=== PATIENT | male | born 1960 | race American Indian/Alaskan Native ===

== ENCOUNTER 2019-05-29 19:40 | Emergency (ER) | payer SELFPAY ==
[2019-05-29 20:01] VITALS: BP 114/72
--- NOTE | 2019-05-29 20:04 | Event Note ---
ED Screening Note ED Screening Note: chills/hot cough never smoker no lung disease new to area This initial assessment/diagnostic orders/clinical plan/treatment(s) is/are subject to change based on patients health status, clinical progression and re- assessment by fellow clinical providers in the ED. Further treatment and workup at subsequent clinical providers discretion. Patient/guardian urged not to elope from the ED as their condition may be serious if not clinically assessed and managed. Initial orders include: xray
--- NOTE | 2019-05-29 21:18 | XRay Report ---
CHEST PA AND LATERAL VIEWS INDICATION: cough and congestion. COMPARISON: None. FINDINGS: Support devices: None. Heart: Within normal limits. Lungs/Pleura: No acute pulmonary or pleural findings. IMPRESSION: 1. No significant abnormality. Signer Name: João Jesus MD Signed: 05/29/2019 9:13 PM Workstation Name: [id number]
--- NOTE | 2019-05-29 22:37 | Emergency Department Report ---
- General Chief Complaint: Upper Respiratory Infection Stated Complaint: CHEST CONGESTION Time Seen by Provider: 05/29/19 20:02 Source: patient Mode of arrival: Ambulatory Limitations: No Limitations - History of Present Illness Initial Comments: Patient is a 58-year-old -Burkin[place] male who presents for cough wheezing nocturnal fever history of bronchitis states my bronchitis is acting up patient states out of albuterol inhaler there is no chest pain no nausea vomiting no dizziness no lightheadedness symptoms are exacerbated by environmental exposure symptoms are relieved by rest MD Complaint: cough, rhinorrhea, nasal congestion, sinus pain Onset/Timin -: days(s) Severity: moderate Severity scale (0 -10): 5 Consistency: constant Improves With: nothing Worsens With: other (environmental exposure ) Context: sick contacts Associated Symptoms: fever, rhinorrhea, nasal congestion, cough - Related Data Previous Rx's Medication Instructions Recorded Last Taken Type ALBUTEROL Inhaler (OR & NICU) 2 puff IH QID PRN #1 inhalation 05/29/19 Unknown Rx [ProAir HFA Inhaler] Benzonatate [Tessalon Perles] 100 mg PO Q8HR PRN #30 capsule 05/29/19 Unknown Rx Clindamycin [Clindamycin CAP] 300 mg PO Q8H 10 Days #30 cap 05/29/19 Unknown Rx Ibuprofen [Motrin 800 MG tab] 800 mg PO Q8HR PRN #30 tablet 05/29/19 Unknown Rx predniSONE [Deltasone] 40 mg PO QDAY 5 Days #10 tab 05/29/19 Unknown Rx Allergies Allergy/AdvReac Type Severity Reaction Status Date / Time erythromycin base Allergy Unknown Verified 05/29/19 20:04 Sulfa (Sulfonamide Allergy Unknown Verified 05/29/19 20:05 Antibiotics) Tetracyclines AdvReac Swelling Verified 05/29/19 20:04 ED Review of Systems ROS: Stated complaint: CHEST CONGESTION Other details as noted in HPI Constitutional: denies: chills, fever Eyes: denies: eye pain, eye discharge, vision change ENT: congestion. denies: ear pain, throat pain Respiratory: cough. denies: shortness of breath, wheezing Cardiovascular: denies: chest pain, palpitations Endocrine: no symptoms reported Gastrointestinal: denies: abdominal pain, nausea, diarrhea Genitourinary: denies: urgency, dysuria Musculoskeletal: denies: back pain, joint swelling, arthralgia Skin: denies: rash, lesions Neurological: denies: headache, weakness, paresthesias Psychiatric: denies: anxiety, depression Hematological/Lymphatic: denies: easy bleeding, easy bruising ED Past Medical Hx - Past Medical History Previous Medical History?: Yes Hx Hypertension: Yes Hx Renal Disease: Yes (stage I) Additional medical history: HERNIA, PRE-DIABETES, HYPERLIPIDEMIA - Surgical History Past Surgical History?: Yes Additional Surgical History: R ARM SURGERY - Social History Smoking Status: Never Smoker Substance Use Type: None - Medications Home Medications: Home Medications Medication Instructions Recorded Confirmed Last Taken Type ALBUTEROL Inhaler (OR & NICU) 2 puff IH QID PRN #1 inhalation 05/29/19 Unknown Rx [ProAir HFA Inhaler] Benzonatate [Tessalon Perles] 100 mg PO Q8HR PRN #30 capsule 05/29/19 Unknown Rx Clindamycin [Clindamycin CAP] 300 mg PO Q8H 10 Days #30 cap 05/29/19 Unknown Rx Ibuprofen [Motrin 800 MG tab] 800 mg PO Q8HR PRN #30 tablet 05/29/19 Unknown Rx predniSONE [Deltasone] 40 mg PO QDAY 5 Days #10 tab 05/29/19 Unknown Rx ED Physical Exam - General Limitations: No Limitations General appearance: alert, in no apparent distress - Head Head exam: Present: atraumatic, normocephalic - Eye Eye exam: Present: normal appearance, PERRL, EOMI Pupils: Present: normal accommodation - ENT ENT exam: Present: mucous membranes moist, TM's normal bilaterally, normal external ear exam - Expanded ENT Exam Expanded Ear exam: Present: normal external inspection Throat exam: Positive: tonsillar erythema, tonsillomegaly, tonsillar exudate, R peritonsillar mass, L peritonsillar mass - Neck Neck exam: Present: normal inspection, full ROM. Absent: tenderness, lymphadenopathy, thyromegaly - Respiratory Respiratory exam: Present: normal lung sounds bilaterally. Absent: respiratory distress, wheezes, stridor, chest wall tenderness - Cardiovascular Cardiovascular Exam: Present: regular rate, normal rhythm, normal heart sounds. Absent: systolic murmur, diastolic murmur, rubs, gallop - GI/Abdominal GI/Abdominal exam: Present: soft, normal bowel sounds. Absent: distended, tenderness, guarding, rebound, rigid, bruit, hernia - Rectal Rectal exam: Present: deferred - Extremities Exam Extremities exam: Present: normal inspection, full ROM, normal capillary refill. Absent: tenderness - Back Exam Back exam: Present: normal inspection, full ROM, vertebral tenderness. Absent: tenderness, CVA tenderness (R), CVA tenderness (L), muscle spasm, rash noted - Neurological Exam Neurological exam: Present: alert, oriented X3, CN II-XII intact, normal gait, reflexes normal - Psychiatric Psychiatric exam: Present: normal affect, normal mood - Skin Skin exam: Present: warm, dry, intact, normal color. Absent: rash ED Course Vital Signs 05/29/19 20:00 Temperature 99.3 F Pulse Rate 85 Respiratory 18 Rate Blood Pressure 114/72 O2 Sat by Pulse 99 Oximetry ED Medical Decision Making - Radiology Data Radiology results: report reviewed, image reviewed Ordering Physician: SOPHY OBRIEN Date of Service: 05/29/19 Procedure(s): XR chest routine 2V Accession Number(s): [id number] cc: SOPHY OBRIEN Fluoro Time In Minutes: CHEST PA AND LATERAL VIEWS INDICATION: cough and congestion. COMPARISON: None. FINDINGS: Support devices: None. Heart: Within normal limits. Lungs/Pleura: No acute pulmonary or pleural findings. IMPRESSION: 1. No significant abnormality. Signer Name: João Jesus MD Signed: 05/29/2019 9:13 PM Workstation Name: [id number] Transcribed By: Dictated By: João Jesus MD Electronically Authenticated By: João Jesus MD Signed Date/Time: 05/29/192112 - Medical Decision Making cxr no infiltrates no opacities, plan tx for bronchitis, albuterol, prednisone, azithromycin, ibuprofen tessalon pearls, follow up with pcp in 2-3 days return to emergency if symptoms worsen. Critical care attestation.: If time is entered above; I have spent that time in minutes in the direct care of this critically ill patient, excluding procedure time. ED Disposition Clinical Impression: Bronchitis Disposition: DC-01 TO HOME OR SELFCARE Is pt being admited?: No Does the pt Need Aspirin: No Condition: Stable Instructions: Chronic Bronchitis (ED) Prescriptions: Clindamycin [Clindamycin CAP] 300 mg PO Q8H 10 Days #30 cap predniSONE [Deltasone] 40 mg PO QDAY 5 Days #10 tab Ibuprofen [Motrin 800 MG tab] 800 mg PO Q8HR PRN #30 tablet PRN Reason: Pain , Severe (7-10) ALBUTEROL Inhaler (OR & NICU) [ProAir HFA Inhaler] 2 puff IH QID PRN #1 inhalation PRN Reason: Shortness Of Breath Benzonatate [Tessalon Perles] 100 mg PO Q8HR PRN #30 capsule PRN Reason: cough [facility] - [facility]-5 Days Forms: Work/School Release Form(ED) Time of Disposition: 22:47
== END 2019-05-29 23:00 | disposition home or self-care (01) ==
LOC: ED 19:40
DX: J40 Bronchitis, not specified as acute or chronic (principal); I10 Essential (primary) hypertension; E78.5 Hyperlipidemia, unspecified; Z91.041 Radiographic dye allergy status; Z88.2 Allergy status to sulfonamides; Z88.8 Allergy status to other drugs, medicaments and biological substances; Z98.890 Other specified postprocedural states
CPT/HCPCS: 71046

== ENCOUNTER 2019-06-23 14:08 | Emergency (ER) | payer MEDICAID ==
--- NOTE | 2019-06-23 14:13 | Event Note ---
ED Screening Note Date of service: 06/23/19 Time: 14:12 ED Screening Note: This is a 58 y.o. M. that presents to the ER with headache, sore throat, and congestion for 3 weeks. This initial assessment/diagnostic orders/clinical plan/treatment(s) is/are subject to change based on patients health status, clinical progression and re- assessment by fellow clinical providers in the ED. Further treatment and workup at subsequent clinical providers discretion. Patient/guardian urged not to elope from the ED as their condition may be serious if not clinically assessed and managed. Initial orders include: ACC for further evaluation.
[2019-06-23 14:14] VITALS: BP 132/79
[2019-06-23] MEDS ORDERED: TYLENOL/CODEINE PO ONE (15:08)
[2019-06-23] MEDS ORDERED: TRIMOX PO ONE (15:08)
--- NOTE | 2019-06-23 15:09 | Emergency Department Report ---
Minor Respiratory - HPI Chief Complaint: Upper Respiratory Infection Stated Complaint: SORE THROAT/PINK EYE Time Seen by Provider: 06/23/19 14:12 Pain Location: Facial, Throat, Nose Severity: moderate Minor Respiratory: Yes Sore Throat, Yes Able to Tolerate Fluids, Yes Cough, No Rhinorrhea, No Ear Pain, No Sick Contacts, No Hemoptysis, No Chest Pain, No Shortness of Breath, No Fever Other History: 58-year-old male presents with sore throat I drainage and nasal congestion stating that he is a family history for about a week now. Patient states that he is some eyedrops with no relief. He denies fever assess chill/nausea vomiting ED Review of Systems ROS: Stated complaint: SORE THROAT/PINK EYE Other details as noted in HPI Comment: All other systems reviewed and negative ED Past Medical Hx - Past Medical History Previous Medical History?: Yes Hx Hypertension: Yes Hx Renal Disease: Yes (stage I) Additional medical history: HERNIA, PRE-DIABETES, HYPERLIPIDEMIA. A FIB - Surgical History Additional Surgical History: R ARM SURGERY - Social History Smoking Status: Never Smoker Substance Use Type: None - Medications Home Medications: Home Medications Medication Instructions Recorded Confirmed Last Taken Type ALBUTEROL Inhaler (OR & NICU) 2 puff IH QID PRN #1 inhalation 05/29/19 Unknown Rx [ProAir HFA Inhaler] Clindamycin [Clindamycin CAP] 300 mg PO Q8H 10 Days #30 cap 05/29/19 Unknown Rx levoFLOXacin [Levaquin TAB] 500 mg PO QDAY 3 Days #3 tablet 05/29/19 Unknown Rx predniSONE [Deltasone] 40 mg PO QDAY 5 Days #10 tab 05/29/19 Unknown Rx Amoxicillin/Potassium Clav 1 each PO BID #20 tablet 06/23/19 Unknown Rx [Augmentin 875-125 Tablet] Benzonatate [Tessalon Perles] 100 mg PO Q8HR PRN #30 capsule 06/23/19 Unknown Rx Ibuprofen [Motrin 800 MG tab] 800 mg PO Q8HR PRN #30 tablet 06/23/19 Unknown Rx Minor Respiratory Exam - Exam General: Vital signs noted. No distress. Alert and acting appropriately. HEENT: Yes Moist Mucous Membranes, Yes Maxillary Tenderness, No Pharyngeal Erythema, No Pharyngeal Exudates, No Rhinorrhea, No Conjuctival Injection, No Frontal Tenderness Ear: Neither TM Bulge, Neither TM Erythema, Neither EAC Pain, Neither EAC Discharge Neck: Yes Supple (no tonsillar erythema, no tonsillar swelling, no exudate), No Adenopathy Lungs: Yes Good Air Exchange, No Wheezes, No Ronchi, No Stridor, No Cough, No Labored Respirations, No Retractions, No Use of Accessory Muscles, No Other Abnormal Lung Sounds Heart: Yes Regular, No Murmur Abdomen: Yes Normal Bowel Sounds, No Tenderness, No Peritoneal Signs Skin: No Rash, No Edema Neurologic: Alert and oriented, no deficits. Musculoskeletal: Unremarkable. ED Course Vital Signs 06/23/19 14:12 Temperature 98.6 F Pulse Rate 77 Respiratory 16 Rate Blood Pressure 132/79 O2 Sat by Pulse 99 Oximetry ED Medical Decision Making - Medical Decision Making 58-year-old male presents with acute sinusitis with mild conjunctivitis. Discussed with patient that he will be given some oral antibiotics. Assessment the patient to follow up with primary care physician in 3-5 days. I discussed with the patient the patient to continue using his eyedrops as prescribed. Patient is in no acute distress. Vital signs are normal he is in no respiratory distress. Discussed follow-up necessary. Mariella given Critical care attestation.: If time is entered above; I have spent that time in minutes in the direct care of this critically ill patient, excluding procedure time. ED Disposition Clinical Impression: Sinusitis Disposition: - TO HOME OR SELFCARE Is pt being admited?: No Does the pt Need Aspirin: No Condition: Stable Instructions: Upper Respiratory Infection (ED), Sinusitis (ED) Additional Instructions: Make sure to follow up with the primary care physician as discussed. Take all your medications as you've been prescribed. If you have any worsening symptoms or develop new symptoms please return to ED immediately. Prescriptions: Amoxicillin/Potassium Clav [Augmentin 875-125 Tablet] 1 each PO BID #20 tablet Ibuprofen [Motrin 800 MG tab] 800 mg PO Q8HR PRN #30 tablet PRN Reason: Pain , Severe (7-10) Benzonatate [Tessalon Perles] 100 mg PO Q8HR PRN #30 capsule PRN Reason: cough Referrals: [facility] [Outside] - 3-5 Days [facility] [Outside] - 3-5 Days Forms: Accompanied Note, Work/School Release Form(ED) Time of Disposition: 16:22
== END 2019-06-23 16:42 | disposition home or self-care (01) ==
LOC: ED 14:08
DX: J32.9 Chronic sinusitis, unspecified (principal); I10 Essential (primary) hypertension; E78.5 Hyperlipidemia, unspecified; Z98.890 Other specified postprocedural states; N28.9 Disorder of kidney and ureter, unspecified; Z79.899 Other long term (current) drug therapy; Z91.041 Radiographic dye allergy status; Z88.2 Allergy status to sulfonamides; Z88.1 Allergy status to other antibiotic agents

== ENCOUNTER 2019-08-19 23:29 | Emergency (ER) | payer SELFPAY ==
[2019-08-20 00:30] LABS: Basophils % (Auto) 0.7 % (0.0-1.8); Eosinophils # (Auto) 0.1 K/mm3 (0.0-0.4); Hematocrit 40.1 % (35.5-45.6); Hemoglobin 13.7 gm/dl (11.8-15.2); Lymphocytes # (Auto) 2.1 K/mm3 (1.2-5.4); Mean Corpuscular HGB Conc 34 % (32-34); Mean Corpuscular Volume 83 fl (84-94); Monocytes # (Auto) 0.4 K/mm3 (0.0-0.8); Monocytes % (Auto) 7.2 % (0.0-7.3); Platelet Count 180 K/mm3 (140-440); Red Blood Count 4.83 M/mm3 (3.65-5.03); Red Cell Distribution Width 15.9 % (13.2-15.2)
[2019-08-20 00:53] LABS: Alanine Aminotransferase 23 units/L (7-56); BUN/Creatinine Ratio 13; Blood Urea Nitrogen 15 mg/dL (9-20); Calcium 9.3 mg/dL (8.4-10.2); Hemolysis Index 15
--- NOTE | 2019-08-20 01:13 | XRay Report ---
CHEST 1 VIEW 08/20/2019 12:21 AM INDICATION / CLINICAL INFORMATION: afib. COMPARISON: 05/29/19 FINDINGS: SUPPORT DEVICES: None. HEART / MEDIASTINUM: No significant abnormality. LUNGS / PLEURA: No significant pulmonary or pleural abnormality. No pneumothorax. ADDITIONAL FINDINGS: No significant additional findings. IMPRESSION: 1. No acute findings. No change. Signer Name: Vanesa Fitzgerald MD Signed: 08/20/2019 1:08 AM Workstation Name: [id number]
--- NOTE | 2019-08-20 01:57 | Emergency Department Report ---
ED Shortness of Breath HPI - General Chief Complaint: Arrhythmia/Palpitations Stated Complaint: EVELYN Time Seen by Provider: 08/20/19 00:35 Source: EMS Mode of arrival: Ambulatory Limitations: No Limitations - History of Present Illness Initial Comments: Patient is a 58-year-old -[place] male with a past medical history of atrial fibrillation and prediabetes who is presenting with episode of shortness of breath. Patient states he just moved to [place] and they just finished moving of the things into [facility]. Patient was leaning down to lie on the floor and started having some shortness of breath persisted for approximately 30 minutes to an hour. At this time the patient is asymptomatic. Patient want to come into the hospital to see if he was back into atrial fibrillation. Patient denies chest pain fevers chills cough cold congestion nausea vomiting at this time. - Related Data Previous Rx's Medication Instructions Recorded Last Taken Type ALBUTEROL Inhaler (OR & NICU) 2 puff IH QID PRN #1 inhalation 05/29/19 Unknown Rx [ProAir HFA Inhaler] Clindamycin [Clindamycin CAP] 300 mg PO Q8H 10 Days #30 cap 05/29/19 Unknown Rx levoFLOXacin [Levaquin TAB] 500 mg PO QDAY 3 Days #3 tablet 05/29/19 Unknown Rx predniSONE [Deltasone] 40 mg PO QDAY 5 Days #10 tab 05/29/19 Unknown Rx Amoxicillin/Potassium Clav 1 each PO BID #20 tablet 06/23/19 Unknown Rx [Augmentin 875-125 Tablet] Benzonatate [Tessalon Perles] 100 mg PO Q8HR PRN #30 capsule 06/23/19 Unknown Rx Ibuprofen [Motrin 800 MG tab] 800 mg PO Q8HR PRN #30 tablet 06/23/19 Unknown Rx Allergies Allergy/AdvReac Type Severity Reaction Status Date / Time erythromycin base Allergy Unknown Verified 05/29/19 20:04 Sulfa (Sulfonamide Allergy Unknown Verified 05/29/19 20:05 Antibiotics) Tetracyclines AdvReac Swelling Verified 05/29/19 20:04 ED Review of Systems ROS: Stated complaint: EVELYN Other details as noted in HPI Comment: All other systems reviewed and negative ED Past Medical Hx - Past Medical History Hx Hypertension: Yes Hx Renal Disease: Yes (stage I) Additional medical history: HERNIA, PRE-DIABETES, HYPERLIPIDEMIA. A FIB - Surgical History Additional Surgical History: R ARM SURGERY - Social History Smoking Status: Never Smoker Substance Use Type: None - Medications Home Medications: Home Medications Medication Instructions Recorded Confirmed Last Taken Type ALBUTEROL Inhaler (OR & NICU) 2 puff IH QID PRN #1 inhalation 05/29/19 Unknown Rx [ProAir HFA Inhaler] Clindamycin [Clindamycin CAP] 300 mg PO Q8H 10 Days #30 cap 05/29/19 Unknown Rx levoFLOXacin [Levaquin TAB] 500 mg PO QDAY 3 Days #3 tablet 05/29/19 Unknown Rx predniSONE [Deltasone] 40 mg PO QDAY 5 Days #10 tab 05/29/19 Unknown Rx Amoxicillin/Potassium Clav 1 each PO BID #20 tablet 06/23/19 Unknown Rx [Augmentin 875-125 Tablet] Benzonatate [Tessalon Perles] 100 mg PO Q8HR PRN #30 capsule 06/23/19 Unknown Rx Ibuprofen [Motrin 800 MG tab] 800 mg PO Q8HR PRN #30 tablet 06/23/19 Unknown Rx ED Physical Exam - General Limitations: No Limitations General appearance: alert, in no apparent distress - Head Head exam: Present: atraumatic, normocephalic - Eye Eye exam: Present: normal appearance, PERRL, EOMI - ENT ENT exam: Present: mucous membranes moist - Neck Neck exam: Present: normal inspection - Respiratory Respiratory exam: Present: normal lung sounds bilaterally. Absent: respiratory distress, wheezes, rales, rhonchi - Cardiovascular Cardiovascular Exam: Present: regular rate, normal rhythm. Absent: systolic murmur, diastolic murmur, rubs, gallop - GI/Abdominal GI/Abdominal exam: Present: soft, normal bowel sounds. Absent: distended, tenderness, guarding, rebound - Rectal Rectal exam: Present: deferred - Extremities Exam Extremities exam: Present: normal inspection - Back Exam Back exam: Present: normal inspection - Neurological Exam Neurological exam: Present: alert, oriented X3 - Psychiatric Psychiatric exam: Present: normal affect, normal mood - Skin Skin exam: Present: warm, dry, intact, normal color. Absent: rash ED Course Vital Signs 08/19/19 08/20/19 08/20/19 23:44 00:34 01:00 Temperature 98.9 F 98.7 F Pulse Rate 80 70 70 Respiratory 20 16 14 Rate Blood Pressure 130/80 121/79 Blood Pressure 127/87 [Left] O2 Sat by Pulse 97 98 98 Oximetry ED Medical Decision Making - Lab Data Result diagrams: 08/20/19 00:03 08/20/19 00:03 Lab Results 08/20/19 08/20/19 Range/Units 00:03 00:03 WBC 5.9 (4.5-11.0) K/mm3 RBC 4.83 (3.65-5.03) M/mm3 Hgb 13.7 (11.8-15.2) gm/dl Hct 40.1 (35.5-45.6) % MCV 83 L (84-94) fl MCH 28 (28-32) pg MCHC 34 (32-34) % RDW 15.9 H (13.2-15.2) % Plt Count 180 (140-440) K/mm3 Lymph % (Auto) 35.0 (13.4-35.0) % [place] % (Auto) 7.2 (0.0-7.3) % Eos % (Auto) 2.0 (0.0-4.3) % Baso % (Auto) 0.7 (0.0-1.8) % Lymph # 2.1 (1.2-5.4) K/mm3 [place] # 0.4 (0.0-0.8) K/mm3 Eos # 0.1 (0.0-0.4) K/mm3 Baso # 0.0 (0.0-0.1) K/mm3 Seg Neutrophils % 55.1 (40.0-70.0) % Seg Neutrophils # 3.2 (1.8-7.7) K/mm3 Sodium 140 (137-145) mmol/L Potassium 3.4 L (3.6-5.0) mmol/L Chloride 102.8 (98-107) mmol/L Carbon Dioxide 24 (22-30) mmol/L Anion Gap 17 mmol/L BUN 15 (9-20) mg/dL Creatinine 1.2 (0.8-1.5) mg/dL Estimated GFR > 60 ml/min BUN/Creatinine Ratio 13 % Glucose 148 H (75-100) mg/dL Calcium 9.3 (8.4-10.2) mg/dL Total Bilirubin 0.60 (0.1-1.2) mg/dL AST 19 (5-40) units/L ALT 23 (7-56) units/L Alkaline Phosphatase 104 (35-129) units/L Total Protein 7.3 (6.3-8.2) g/dL Albumin 4.0 (3.9-5) g/dL Albumin/Globulin Ratio 1.2 % - EKG Data -: EKG Interpreted by La - EKG Data 08/20/19 01:54 EKG shows sinus rhythm a rate of 66. The axis is leftward interval show prolonged NC interval but no evidence of atrial fibrillation. Patient has a left anterior fascicular block. There are no ST segment elevations or depressions present. Interpretation at 0016 - Radiology Data COMPARISON: 05/29/19 FINDINGS: SUPPORT DEVICES: None. HEART / MEDIASTINUM: No significant abnormality. LUNGS / PLEURA: No significant pulmonary or pleural abnormality. No pneumothorax. ADDITIONAL FINDINGS: No significant additional findings. IMPRESSION: 1. No acute findings. No change. Signer Name: Vanesa Fitzgerald MD Signed: 08/20/2019 1:08 AM Workstation Name: [id number] Transcribed By: DT Dictated By: Alireza Fitzgerald MD Electronically Authenticated By: Alireza Fitzgerald MD Signed Date/Time: 08/20/19 0108 - Medical Decision Making She was placed on a monitor and showed no evidence of any further atrial fibrillation while he was here in emergency department. Patient will be referred to primary care cardiology here in [place]. Patient's electrolytes within normal limits. Critical care attestation.: If time is entered above; I have spent that time in minutes in the direct care of this critically ill patient, excluding procedure time. ED Disposition Clinical Impression: Paroxysmal A-fib Disposition: DC-01 TO HOME OR SELFCARE Is pt being admited?: No Does the pt Need Aspirin: No Condition: Stable Referrals: CORI BERGMAN MD [Staff Physician] - 3-5 Days JERZY DOLL MD [Staff Physician] - 3-5 Days Time of Disposition: 01:58
[2019-08-20 02:57] VITALS: BP 120/81
== END 2019-08-20 02:15 | disposition home or self-care (01) ==
LOC: ED 23:29
DX: I48.0 Paroxysmal atrial fibrillation (principal); I10 Essential (primary) hypertension; E78.5 Hyperlipidemia, unspecified; Z79.899 Other long term (current) drug therapy; Z91.041 Radiographic dye allergy status; Z88.2 Allergy status to sulfonamides; Z88.1 Allergy status to other antibiotic agents
CPT/HCPCS: 36415; 71045; 80053; 85025; 93005; 93010

== ENCOUNTER 2020-05-17 12:55 | Emergency (ER) | payer OTHER ==
--- NOTE | 2020-05-17 13:41 | XRay Report ---
CHEST 2 VIEWS INDICATION / CLINICAL INFORMATION: cough. COMPARISON: 08/20/2019 FINDINGS: SUPPORT DEVICES: None. HEART / MEDIASTINUM: No significant abnormality. LUNGS / PLEURA: No significant pulmonary or pleural abnormality. No pneumothorax. ADDITIONAL FINDINGS: No significant additional findings. IMPRESSION: 1. No acute findings. Signer Name: João Jesus MD Signed: 05/17/2020 1:36 PM Workstation Name: [id number]
[2020-05-17 13:45] VITALS: BP 130/97
[2020-05-17 14:43] LABS: Basophils % (Auto) 0.9 % (0.0-1.8); Eosinophils % (Auto) 0.7 % (0.0-4.3); Hematocrit 38.7 % (35.5-45.6); Hemoglobin 13.1 gm/dl (11.8-15.2); Lymphocytes % (Auto) 23.6 % (13.4-35.0); Mean Corpuscular HGB Conc 34 % (32-34); Mean Corpuscular Volume 80 fl (84-94); Monocytes # (Auto) 0.2 K/mm3 (0.0-0.8); Monocytes % (Auto) 4.7 % (0.0-7.3); Platelet Count 171 K/mm3 (140-440); Red Blood Count 4.82 M/mm3 (3.65-5.03); Red Cell Distribution Width 15.6 % (13.2-15.2)
[2020-05-17 15:09] LABS: BUN/Creatinine Ratio 10; Blood Urea Nitrogen 11 mg/dL (9-20); Calcium 9.1 mg/dL (8.4-10.2); Hemolysis Index 7
--- NOTE | 2020-05-17 15:37 | Emergency Department Report ---
Minor Respiratory - HPI Chief Complaint: Upper Respiratory Infection Stated Complaint: CP Time Seen by Provider: 05/17/20 13:13 ED Review of Systems ROS: Stated complaint: CP Other details as noted in HPI Comment: All other systems reviewed and negative ED Past Medical Hx - Past Medical History Previous Medical History?: Yes Hx Hypertension: Yes Hx Renal Disease: Yes (stage I) Additional medical history: HERNIA, PRE-DIABETES, HYPERLIPIDEMIA. A FIB - Surgical History Past Surgical History?: Yes Additional Surgical History: R ARM SURGERY - Family History Family history: no significant - Social History Smoking Status: Never Smoker Substance Use Type: None - Medications Home Medications: Home Medications Medication Instructions Recorded Confirmed Last Taken Type Albuterol Mdi (or & Nicu Only) 2 puff IH QID PRN #1 inhalation 05/17/20 Unknown Rx [ProAir HFA Inhaler] Azithromycin [Zithromax Z-BARBARA] 250 mg PO DAILY #6 tablet 05/17/20 Unknown Rx Cetirizine HCl [ZyrTEC] 10 mg PO DAILY #30 capsule 05/17/20 Unknown Rx predniSONE [Deltasone] 20 mg PO DAILY #5 tablet 05/17/20 Unknown Rx Minor Respiratory Exam - Exam General: Vital signs noted. No distress. Alert and acting appropriately. HEENT: Yes Moist Mucous Membranes, No Pharyngeal Erythema, No Pharyngeal Exudates, No Rhinorrhea, No Conjuctival Injection, No Frontal Tenderness, No Maxillary Tenderness Ear: Neither TM Bulge, Neither TM Erythema, Neither EAC Pain, Neither EAC Discharge Neck: Yes Supple, No Adenopathy Lungs: Yes Good Air Exchange, No Wheezes, No Ronchi, No Stridor, No Cough, No L abored Respirations, No Retractions, No Use of Accessory Muscles, No Other Abnormal Lung Sounds Heart: Yes Regular, No Murmur Abdomen: Yes Normal Bowel Sounds, No Tenderness, No Peritoneal Signs Skin: No Rash, No Edema Neurologic: Alert and oriented, no deficits. Musculoskeletal: Unremarkable. ED Course Vital Signs 05/17/20 13:05 Temperature 98.7 F Pulse Rate 60 Respiratory 18 Rate Blood Pressure 130/97 O2 Sat by Pulse 94 Oximetry ED Medical Decision Making - Lab Data Result diagrams: 05/17/20 14:26 05/17/20 14:26 - Radiology Data Radiology results: report reviewed, image reviewed Critical care attestation.: If time is entered above; I have spent that time in minutes in the direct care of this critically ill patient, excluding procedure time. ED Disposition Clinical Impression: URTI (acute upper respiratory infection), Sinusitis Disposition: TO HOME OR SELFCARE Is pt being admited?: No Does the pt Need Aspirin: No Condition: Stable Prescriptions: predniSONE [Deltasone] 20 mg PO DAILY #5 tablet Albuterol Mdi (or & Nicu Only) [ProAir HFA Inhaler] 2 puff IH QID PRN #1 inhalation PRN Reason: Shortness Of Breath Azithromycin [Zithromax Z-BARBARA] 250 mg PO DAILY #6 tablet Cetirizine HCl [ZyrTEC] 10 mg PO DAILY #30 capsule Referrals: PRIMARY CAREMD [Primary Care Provider] - 3-5 Days DEMARCUS JOSÉ MD [Staff Physician] - 3-5 Days Time of Disposition: 15:37
== END 2020-05-17 15:46 | disposition home or self-care (01) ==
LOC: ED 12:55
DX: J06.9 Acute upper respiratory infection, unspecified (principal); J32.8 Other chronic sinusitis; I10 Essential (primary) hypertension; N28.9 Disorder of kidney and ureter, unspecified; Z79.899 Other long term (current) drug therapy; Z88.8 Allergy status to other drugs, medicaments and biological substances
CPT/HCPCS: 36415; 71046; 80048; 84484; 85025; 99283

== ENCOUNTER 2020-05-24 20:52 | Emergency (ER) | payer OTHER ==
--- NOTE | 2020-05-24 20:59 | Event Note ---
ED Screening Note ED Screening Note: her w family bc he thinks they are dehydrated geovany wilcox ac he has roll scale man involved pmh ckd he is in nad This initial assessment/diagnostic orders/clinical plan/treatment(s) is/are subject to change based on patients health status, clinical progression and re- assessment by fellow clinical providers in the ED. Further treatment and workup at subsequent clinical providers discretion. Patient/guardian urged not to elope from the ED as their condition may be serious if not clinically assessed and managed. Initial orders include: ua eval for ketones
[2020-05-24] MEDS ORDERED: MECLIZINE 25 MG TAB PO ONE (23:36)
[2020-05-24] MEDS ORDERED: BUTALB/ACETAMINOPHEN/CAFFEINE TAB PO ONE (23:36)
[2020-05-24] MEDS ORDERED: AMOXICILLIN/K CLAV 875/125MG TAB PO ONE (23:36)
--- NOTE | 2020-05-24 23:56 | Emergency Department Report ---
ED Headache HPI - General Chief Complaint: Headache Stated Complaint: DEHYDRATION Time Seen by Provider: 05/24/20 20:58 Source: patient, RN notes reviewed Exam Limitations: no limitations - History of Present Illness Initial Comments: Patient is a 59-year-old -[place]ir[place] male with a history of hypertension and chronic kidney disease stage I who presents to the ED with complaint of acute onset persistent frontal sinus pressure and headache with lightheadedness and nausea for the last 1 week, worse in the last 2 days. Patient states that he initially thought that he was dehydrated due to the fact that he lives in a house with no air conditioning. Patient states that he has been taking [id number] medications Tylenol with no relief. Patient denies syncope, seizures, fever, chills, cough, vomiting, abdominal pain, diarrhea, sore throat, change in vision and cough. Timing/Duration: 1 week Quality: severe, pressure, sharp Head Injury Location: frontal Recent Head Trauma: no recent headache/trauma Associated Symptoms: denies symptoms, facial pain, nausea/vomiting, sinus infection. denies: confusion, fever/chills, flushing, loss of consciousness, nasal congestion, nasal drainage, numbness in legs/feet, seizures, stiff neck, vision changes, weakness Allergies/Adverse Reactions: Allergies erythromycin base Allergy (Verified 05/17/20 13:10) Unknown states it slows down his HR Sulfa (Sulfonamide Antibiotics) Allergy (Verified 05/17/20 13:10) Unknown states it slows down his HR Tetracyclines Adverse Reaction (Verified 05/17/20 13:10) Swelling Home Medications: Ambulatory Orders Albuterol Mdi (or & Nicu Only) [ProAir HFA Inhaler] 2 puff IH QID PRN #1 inhalation 05/17/20 Azithromycin [Zithromax Z-BARBARA] 250 mg PO DAILY #6 tablet 05/17/20 predniSONE [Deltasone] 20 mg PO DAILY #5 tablet 05/17/20 Butalb/Acetamin/Caff 50-325-40 [Fioricet 50-325-40] 1 - 2 tab PO Q6HR PRN #15 tab 05/24/20 Fluticasone [Flonase] 1 spray NS QDAY #1 bottle 05/24/20 Amoxicillin [Trimox CAP] 500 mg PO Q8H #30 capsule 08/12/20 Cetirizine HCl [ZyrTEC 10mg cap] 10 mg PO DAILY #30 capsule 05/25/20 ED Review of Systems ROS: Stated complaint: DEHYDRATION Other details as noted in HPI Constitutional: malaise. denies: chills, fever Eyes: denies: eye pain, eye discharge, vision change ENT: congestion, other (frontal sinus pressure and pain). denies: ear pain, throat pain, dental pain Respiratory: denies: cough, shortness of breath, SOB with exertion, wheezing Cardiovascular: denies: chest pain, palpitations Endocrine: no symptoms reported Gastrointestinal: denies: abdominal pain, nausea, vomiting, diarrhea, hematemesis, hematochezia Genitourinary: denies: urgency, dysuria, frequency, testicular pain Musculoskeletal: arthralgia, myalgia. denies: back pain, joint swelling Skin: denies: rash, lesions Neurological: headache, other (lightheadedness). denies: weakness, paresthesias Psychiatric: denies: anxiety, depression Hematological/Lymphatic: denies: easy bleeding, easy bruising ED Past Medical Hx - Past Medical History Previous Medical History?: Yes Hx Hypertension: Yes Hx Renal Disease: Yes (stage I) Additional medical history: HERNIA, PRE-DIABETES, HYPERLIPIDEMIA - Surgical History Past Surgical History?: Yes Additional Surgical History: R ARM SURGERY - Social History Smoking Status: Never Smoker Substance Use Type: None - Medications Home Medications: Home Medications Medication Instructions Recorded Confirmed Last Taken Type Albuterol Mdi (or & Nicu Only) 2 puff IH QID PRN #1 inhalation 05/17/20 Unknown Rx [ProAir HFA Inhaler] Azithromycin [Zithromax Z-BARBARA] 250 mg PO DAILY #6 tablet 05/17/20 Unknown Rx predniSONE [Deltasone] 20 mg PO DAILY #5 tablet 05/17/20 Unknown Rx Butalb/Acetamin/Caff 50-325-40 1 - 2 tab PO Q6HR PRN #15 tab 05/24/20 Unknown Rx [Fioricet 50-325-40] Fluticasone [Flonase] 1 spray NS QDAY #1 bottle 05/24/20 Unknown Rx Amoxicillin [Trimox CAP] 500 mg PO Q8H #30 capsule 05/25/20 Unknown Rx Cetirizine HCl [ZyrTEC 10mg cap] 10 mg PO DAILY #30 capsule 05/25/20 Unknown Rx ED Physical Exam - General Limitations: No Limitations General appearance: alert, in no apparent distress - Head Head exam: Present: atraumatic, normocephalic, normal inspection - Eye Eye exam: Present: normal appearance, PERRL, EOMI Pupils: Present: normal accommodation - ENT ENT exam: Present: normal orophraynx, mucous membranes moist, TM's normal bilaterally, normal external ear exam, other (Palpable frontal and maxillary sinus tenderness) - Neck Neck exam: Present: normal inspection, full ROM - Respiratory Respiratory exam: Present: normal lung sounds bilaterally. Absent: respiratory distress, wheezes, rales, rhonchi, chest wall tenderness, accessory muscle use, decreased breath sounds - Cardiovascular Cardiovascular Exam: Present: regular rate, normal rhythm, normal heart sounds. Absent: systolic murmur, diastolic murmur, rubs, gallop - GI/Abdominal GI/Abdominal exam: Present: soft, normal bowel sounds. Absent: tenderness, guarding, rebound, hyperactive bowel sounds, hypoactive bowel sounds, organomegaly - Extremities Exam Extremities exam: Present: normal inspection, full ROM, normal capillary refill - Back Exam Back exam: Present: normal inspection, full ROM. Absent: tenderness, CVA tenderness (R), CVA tenderness (L), muscle spasm, vertebral tenderness - Neurological Exam Neurological exam: Present: alert, oriented X3, CN II-XII intact, normal gait, reflexes normal - Psychiatric Psychiatric exam: Present: normal affect, normal mood - Skin Skin exam: Present: warm, dry, intact, normal color. Absent: rash ED Course Vital Signs 05/25/20 00:30 Temperature 97.9 F Pulse Rate 54 L Respiratory 16 Rate Blood Pressure 158/85 [Right] O2 Sat by Pulse 97 Oximetry ED Medical Decision Making - Medical Decision Making This is a 59-year-old -[place]ir[place] male with a history of hypertension and chronic kidney disease stage I who presents to the ED with complaint of acute onset persistent frontal sinus pressure and headache with lightheadedness and nausea for the last 1 week, worse in the last 2 days. Patient states that he initially thought that he was dehydrated due to the fact that he lives in a house with no air conditioning. Patient states that he has been taking [id number] medications Tylenol with no relief. In the ED, patient is alert and oriented x3 and is not in distress. Patient was treated for pain in the ED also given initial oral antibiotics. On reevaluation, patient's headache and nausea resolved. Patient was discharged home on medications and was advised to follow-up with his primary care physician in 7 to 10 days for reevaluation or return to the ED immediately if symptoms get worse. - Differential Diagnosis sinusitis; dehydration; Migraine headache; Cluster headache Critical care attestation.: If time is entered above; I have spent that time in minutes in the direct care of this critically ill patient, excluding procedure time. ED Disposition Clinical Impression: Sinus headache, Intermittent lightheadedness Acute sinusitis, unspecified Qualifiers: Sinusitis location: pansinusitis Recurrence: non-recurrent Qualified Code(s): J01.40 - Acute pansinusitis, unspecified Disposition: TO HOME OR SELFCARE Is pt being admited?: No Does the pt Need Aspirin: No Condition: Stable Instructions: Acute Bacterial Rhinosinusitis (ED), Acute Headache (ED), Lightheadedness (ED) Additional Instructions: Take medication with food, drink plenty of fluids and follow-up with your primary care physician in 7 to 10 days for reevaluation. Return to the ED immediately if symptoms get worse. Prescriptions: Butalb/Acetamin/Caff 50-325-40 [Fioricet 50-325-40] 1 - 2 tab PO Q6HR PRN #15 tab PRN Reason: Headache Fluticasone [Flonase] 1 spray NS QDAY #1 bottle Amoxicillin [Trimox CAP] 500 mg PO Q8H #30 capsule Cetirizine HCl [ZyrTEC 10mg cap] 10 mg PO DAILY #30 capsule Referrals: [facility] [Provider Group] - 3-5 Days Time of Disposition: 23:58 Print Language: MALAWIAN
[2020-05-25 01:04] VITALS: BP 158/85
== END 2020-05-25 00:30 | disposition home or self-care (01) ==
LOC: ED 20:52
DX: R42 Dizziness and giddiness (principal); J01.90 Acute sinusitis, unspecified; I10 Essential (primary) hypertension; Z79.899 Other long term (current) drug therapy; Z88.2 Allergy status to sulfonamides; Z88.8 Allergy status to other drugs, medicaments and biological substances
CPT/HCPCS: 99282

== ENCOUNTER 2020-06-02 18:14 | Emergency (ER) | payer OTHER ==
[2020-06-02] MEDS ORDERED: ASPIRIN 325 MG TAB PO ONE (18:51)
--- NOTE | 2020-06-02 19:52 | XRay Report ---
CHEST 1 VIEW INDICATION / CLINICAL INFORMATION: Chest Pain. COMPARISON: Chest radiograph 05/17/2020 FINDINGS: SUPPORT DEVICES: None. HEART / MEDIASTINUM: No significant abnormality. LUNGS / PLEURA: No significant pulmonary or pleural abnormality. No pneumothorax. ADDITIONAL FINDINGS: No significant additional findings. IMPRESSION: 1. No acute findings. Signer Name: Amira Montanez MD Signed: 06/02/2020 7:48 PM Workstation Name: [id number]
[2020-06-02 19:55] LABS: Basophils % (Auto) 0.7 % (0.0-1.8); Eosinophils # (Auto) 0.1 K/mm3 (0.0-0.4); Eosinophils % (Auto) 2.7 % (0.0-4.3); Hematocrit 39.6 % (35.5-45.6); Hemoglobin 13.3 gm/dl (11.8-15.2); Lymphocytes # (Auto) 1.6 K/mm3 (1.2-5.4); Lymphocytes % (Auto) 31.4 % (13.4-35.0); Mean Corpuscular HGB Conc 34 % (32-34); Mean Corpuscular Volume 83 fl (84-94); Monocytes # (Auto) 0.5 K/mm3 (0.0-0.8); Monocytes % (Auto) 8.8 % (0.0-7.3); Platelet Count 181 K/mm3 (140-440); Red Blood Count 4.79 M/mm3 (3.65-5.03); Red Cell Distribution Width 15.7 % (13.2-15.2)
[2020-06-02 20:09] LABS: BUN/Creatinine Ratio 8; Blood Urea Nitrogen 10 mg/dL (9-20); Calcium 9.2 mg/dL (8.4-10.2); Hemolysis Index 12
[2020-06-03] MEDS ORDERED: LIDOCAINE VISCOUS 2% 15 ML ORAL LIQD PO ONE (00:20)
--- NOTE | 2020-06-03 00:25 | Emergency Department Report ---
ED Chest Pain HPI - General Chief Complaint: Chest Pain Stated Complaint: CHEST PAIN, GERD Time Seen by Provider: 06/03/20 00:09 Source: patient, EMS Mode of arrival: Ambulatory Limitations: No Limitations - History of Present Illness Initial Comments: Patient is 59 years old male with history of hypertension and GERD. Patient stated that he has been taking Protonix for the last 10 years. Patient presented to the ER complaining of chest pain described as substernal radiated to his throat. Patient stated the pain is burning sensation. No radiation. Patient denies any shortness of breath or cough. No fever or chills. MD Complaint: chest pain -: This afternoon Pain Location: substernal Severity scale (0 -10): 0 - Related Data Previous Rx's Medication Instructions Recorded Last Taken Type Albuterol Mdi (or & Nicu Only) 2 puff IH QID PRN #1 inhalation 05/17/20 Unknown Rx [ProAir HFA Inhaler] Azithromycin [Zithromax Z-BARBARA] 250 mg PO DAILY #6 tablet 05/17/20 Unknown Rx predniSONE [Deltasone] 20 mg PO DAILY #5 tablet 05/17/20 Unknown Rx Butalb/Acetamin/Caff 50-325-40 1 - 2 tab PO Q6HR PRN #15 tab 05/24/20 Unknown Rx [Fioricet 50-325-40] Fluticasone [Flonase] 1 spray NS QDAY #1 bottle 05/24/20 Unknown Rx Amoxicillin [Trimox CAP] 500 mg PO Q8H #30 capsule 05/25/20 Unknown Rx Cetirizine HCl [ZyrTEC 10mg cap] 10 mg PO DAILY #30 capsule 05/25/20 Unknown Rx Allergies Allergy/AdvReac Type Severity Reaction Status Date / Time erythromycin base Allergy Unknown Verified 05/17/20 13:10 Sulfa (Sulfonamide Allergy Unknown Verified 05/17/20 13:10 Antibiotics) Tetracyclines AdvReac Swelling Verified 05/17/20 13:10 Heart Score - HEART Score History: Slightly suspicious EKG: Non-specific Age: 45-65 Risk factors: 1-2 risk factors Troponin: < normal limit HEART Score: 3 - Critical Actions Critical Actions: 0-3 pts:0.9-1.7%risk of adverse cardiac event.Candidate for discharge ED Review of Systems ROS: Stated complaint: CHEST PAIN, GERD Other details as noted in HPI Comment: All other systems reviewed and negative Constitutional: denies: chills, fever Respiratory: denies: cough, shortness of breath, SOB with exertion, SOB at rest, wheezing Cardiovascular: chest pain. denies: palpitations, dyspnea on exertion Gastrointestinal: denies: abdominal pain, nausea, vomiting, diarrhea, constipation, hematemesis, melena, hematochezia Genitourinary: denies: urgency, dysuria Musculoskeletal: denies: back pain ED Past Medical Hx - Past Medical History Previous Medical History?: Yes Hx Hypertension: Yes Hx GERD: Yes Hx Renal Disease: Yes (stage I) Additional medical history: HERNIA, PRE-DIABETES, HYPERLIPIDEMIA - Surgical History Past Surgical History?: Yes Additional Surgical History: R ARM SURGERY - Social History Smoking Status: Never Smoker Substance Use Type: None - Medications Home Medications: Home Medications Medication Instructions Recorded Confirmed Last Taken Type Albuterol Mdi (or & Nicu Only) 2 puff IH QID PRN #1 inhalation 05/17/20 Unknown Rx [ProAir HFA Inhaler] Azithromycin [Zithromax Z-BARBARA] 250 mg PO DAILY #6 tablet 05/17/20 Unknown Rx predniSONE [Deltasone] 20 mg PO DAILY #5 tablet 05/17/20 Unknown Rx Butalb/Acetamin/Caff 50-325-40 1 - 2 tab PO Q6HR PRN #15 tab 05/24/20 Unknown Rx [Fioricet 50-325-40] Fluticasone [Flonase] 1 spray NS QDAY #1 bottle 05/24/20 Unknown Rx Amoxicillin [Trimox CAP] 500 mg PO Q8H #30 capsule 05/25/20 Unknown Rx Cetirizine HCl [ZyrTEC 10mg cap] 10 mg PO DAILY #30 capsule 05/25/20 Unknown Rx ED Physical Exam - General Limitations: No Limitations General appearance: alert, in no apparent distress - Head Head exam: Present: atraumatic, normocephalic, normal inspection - Eye Eye exam: Present: normal appearance, PERRL - ENT ENT exam: Present: normal exam, normal orophraynx, mucous membranes moist - Neck Neck exam: Present: normal inspection, full ROM. Absent: tenderness, meningismus, lymphadenopathy - Respiratory Respiratory exam: Present: normal lung sounds bilaterally - Cardiovascular Cardiovascular Exam: Present: regular rate, normal rhythm, normal heart sounds - GI/Abdominal GI/Abdominal exam: Present: soft, normal bowel sounds. Absent: distended, tenderness, guarding, rebound, rigid, organomegaly, mass, bruit, pulsatile mass, hernia - Extremities Exam Extremities exam: Present: normal inspection, full ROM, normal capillary refill. Absent: pedal edema, calf tenderness - Back Exam Back exam: Present: normal inspection, full ROM. Absent: CVA tenderness (R), CVA tenderness (L) - Neurological Exam Neurological exam: Present: alert, oriented X3, CN II-XII intact, normal gait, reflexes normal. Absent: motor sensory deficit - Psychiatric Psychiatric exam: Present: normal mood - Skin Skin exam: Present: warm, intact, normal color ED Course Vital Signs 06/02/20 18:23 Temperature 98.5 F Pulse Rate 65 Respiratory 18 Rate Blood Pressure 169/81 [Right] O2 Sat by Pulse 98 Oximetry FLACA score - Flaca Score Age > 65: (0) No Aspirin use within the Past 7 Days: (0) No 3 or more CAD Risk Factors: (0) No 2 or more Angina events in past 24 hrs: (0) No Known CAD with more than 50% Stenosis: (0) No Elevated Cardiac Markers: (0) No ST Deviation Greater than 0.5mm: (0) No FLACA Score: 0 ED Medical Decision Making - Lab Data Result diagrams: 06/02/20 19:34 06/02/20 19:34 - EKG Data -: EKG Interpreted by Ct EKG shows normal: sinus rhythm Rate: bradycardia - EKG Data Interpretation: no acute changes - Radiology Data Radiology results: report reviewed - Medical Decision Making Patient is 59 years old male with history of hypertension and GERD. Patient stated that he has been taking Protonix for the last 10 years. Patient presented to the ER complaining of chest pain described as substernal radiated to his throat. Patient stated the pain is burning sensation. No radiation. Patient denies any shortness of breath or cough. No fever or chills. KG showed no ST elevation or depression. Chest x-ray is unremarkable. Labs reviewed and is negative including troponin x2. Patient received GI cocktail and stated the symptoms completely resolved. Patient symptoms is most likely related to his GERD however patient advised to follow-up with his primary care physician for an outpatient cardiac work-up. Patient also advised to return to the ER if he develop any new symptoms or if his symptoms get worse. Critical care attestation.: If time is entered above; I have spent that time in minutes in the direct care of this critically ill patient, excluding procedure time. ED Disposition Clinical Impression: Chest pain, GERD (gastroesophageal reflux disease) Disposition: TO HOME OR SELFCARE Is pt being admited?: No Condition: Stable Instructions: Chest Pain (ED), Gastroesophageal Reflux Disease (ED) Referrals: PRIMARY CARE, [Primary Care Provider] - 3-5 Days
[2020-06-03 00:43] VITALS: BP 130/84
[2020-06-03] MEDS ORDERED: ASPIRIN 325 MG TAB ONE (01:08)
[2020-06-03] MEDS: ALUM-MAG HYDROXIDE-SIMETHICONE 200-200-20MG/5ML ORAL LIQD 30 ML PO ONE ×2 (01:15→01:16)
== END 2020-06-03 01:27 | disposition home or self-care (01) ==
LOC: ED 18:14
DX: K21.9 Gastro-esophageal reflux disease without esophagitis (principal); R07.89 Other chest pain; I10 Essential (primary) hypertension; N28.89 Other specified disorders of kidney and ureter; Z98.890 Other specified postprocedural states; Z79.899 Other long term (current) drug therapy; Z88.2 Allergy status to sulfonamides; Z88.1 Allergy status to other antibiotic agents
CPT/HCPCS: 36415; 71045; 80048; 84484; 85025; 93005

== ENCOUNTER 2021-02-10 20:58 | Emergency (ER) | payer OTHER ==
[2021-02-10 23:31] VITALS: BP 175/90
[2021-02-10] MEDS ORDERED: ACETAMINOPHEN 325 MG TAB PO ONE (23:33)
--- NOTE | 2021-02-11 00:17 | Emergency Department Report ---
ED Neck Pain/Injury HPI - General Chief Complaint: Neck Pain/Injury Stated Complaint: NECK PAIN Time Seen by Provider: 02/10/21 23:29 Source: patient Mode of arrival: Ambulatory Limitations: No Limitations - History of Present Illness Initial Comments: Patient is a 60-year-old male presents emergency room complaints of neck pain. Patient states that he was walking in a store and a 5 pound item fell onto his neck. He is ambulatory without difficulty. He denies falling to the ground. He denies any other injury. He denies any loss of consciousness, vision changes, vomiting, weakness, complete numbness. Past medical history of GERD, hypertension, hyperlipidemia, prediabetes, CKD stage I. Allergy to erythromycin, sulfa, tetracyclines. - Related Data Previous Rx's Medication Instructions Recorded Last Taken Type Albuterol Mdi (or & Nicu Only) 2 puff IH QID PRN #1 inhalation 05/17/20 Unknown Rx [ProAir HFA Inhaler] Azithromycin [Zithromax Z-BARBARA] 250 mg PO DAILY #6 tablet 05/17/20 Unknown Rx predniSONE [Deltasone] 20 mg PO DAILY #5 tablet 05/17/20 Unknown Rx Butalb/Acetamin/Caff 50-325-40 1 - 2 tab PO Q6HR PRN #15 tab 05/24/20 Unknown Rx [Fioricet 50-325-40] Fluticasone [Flonase] 1 spray NS QDAY #1 bottle 05/24/20 Unknown Rx Amoxicillin [Trimox CAP] 500 mg PO Q8H #30 capsule 05/25/20 Unknown Rx Cetirizine HCl [ZyrTEC 10mg cap] 10 mg PO DAILY #30 capsule 05/25/20 Unknown Rx Esomeprazole Magnesium [NexIUM] 40 mg PO QDAY #30 capsule. 06/03/20 Unknown Rx Acetaminophen [Tylenol] 650 mg PO Q8HR PRN #20 capsule 02/11/21 Unknown Rx methOCARBAMOL [Robaxin TAB] 500 mg PO BID PRN #14 tab 02/11/21 Unknown Rx Allergies Allergy/AdvReac Type Severity Reaction Status Date / Time erythromycin base Allergy Unknown Verified 05/17/20 13:10 Sulfa (Sulfonamide Allergy Unknown Verified 05/17/20 13:10 Antibiotics) Tetracyclines AdvReac Swelling Verified 05/17/20 13:10 ED Review of Systems ROS: Stated complaint: NECK PAIN Other details as noted in HPI Comment: All other systems reviewed and negative ED Past Medical Hx - Past Medical History Previous Medical History?: Yes Hx Hypertension: Yes Hx GERD: Yes Hx Renal Disease: Yes (stage I) Additional medical history: HERNIA, PRE-DIABETES, HYPERLIPIDEMIA - Surgical History Past Surgical History?: Yes Additional Surgical History: R ARM SURGERY - Social History Smoking Status: Never Smoker Substance Use Type: None - Medications Home Medications: Home Medications Medication Instructions Recorded Confirmed Last Taken Type Albuterol Mdi (or & Nicu Only) 2 puff IH QID PRN #1 inhalation 05/17/20 Unknown Rx [ProAir HFA Inhaler] Azithromycin [Zithromax Z-BARBARA] 250 mg PO DAILY #6 tablet 05/17/20 Unknown Rx predniSONE [Deltasone] 20 mg PO DAILY #5 tablet 05/17/20 Unknown Rx Butalb/Acetamin/Caff 50-325-40 1 - 2 tab PO Q6HR PRN #15 tab 05/24/20 Unknown Rx [Fioricet 50-325-40] Fluticasone [Flonase] 1 spray NS QDAY #1 bottle 05/24/20 Unknown Rx Amoxicillin [Trimox CAP] 500 mg PO Q8H #30 capsule 05/25/20 Unknown Rx Cetirizine HCl [ZyrTEC 10mg cap] 10 mg PO DAILY #30 capsule 05/25/20 Unknown Rx Esomeprazole Magnesium [NexIUM] 40 mg PO QDAY #30 capsule.dr 06/03/20 Unknown Rx Acetaminophen [Tylenol] 650 mg PO Q8HR PRN #20 capsule 02/11/21 Unknown Rx methOCARBAMOL [Robaxin TAB] 500 mg PO BID PRN #14 tab 02/11/21 Unknown Rx ED Physical Exam - General Limitations: No Limitations General appearance: alert, in no apparent distress - Head Head exam: Present: atraumatic, normocephalic - Eye Eye exam: Present: normal appearance, PERRL, EOMI. Absent: periorbital swelling, periorbital tenderness - ENT ENT exam: Present: mucous membranes moist - Neck Neck exam: Present: normal inspection, tenderness (mild bilateral c-spine paraspinal muscular ttp, no midline c-spine ttp, no step offs, no deformities, no ecchymosis, no edema, no crepitus), full ROM - Respiratory Respiratory exam: Present: normal lung sounds bilaterally. Absent: respiratory distress, wheezes, rales, rhonchi, stridor, chest wall tenderness, accessory muscle use, decreased breath sounds, prolonged expiratory - Cardiovascular Cardiovascular Exam: Present: regular rate, normal rhythm, normal heart sounds. Absent: systolic murmur, diastolic murmur, rubs, gallop - Back Exam Back exam: Present: normal inspection, full ROM. Absent: paraspinal tenderness, vertebral tenderness - Neurological Exam Neurological exam: Present: alert, oriented X3, CN II-XII intact, normal gait, other (5/5 muscle strength in the BUE/BLE, sensation intact throughout). Absent: motor sensory deficit - Psychiatric Psychiatric exam: Present: normal affect, normal mood - Skin Skin exam: Present: warm, dry, intact ED Course Vital Signs 02/10/21 02/11/21 23:25 01:58 Temperature 98.2 F Pulse Rate 62 Respiratory 18 18 Rate Blood Pressure 175/90 O2 Sat by Pulse 100 Oximetry ED Medical Decision Making - Radiology Data Radiology results: report reviewed Ordering Physician: YESIKA QUEEN Date of Service: 02/10/21 Procedure(s): XR spine cervical 2-3V Accession Number(s): [id number] cc: YESIKA QUEEN Fluoro Time In Minutes: CERVICAL SPINE HISTORY: Neck pain COMPARISON: None. TECHNIQUE: 3 view(s) of the cervical spine obtained. FINDINGS: Vertebrae: Normal alignment. No displaced fracture or significant abnormality. Disc Spaces:Disc spaces appear relatively preserved. There is anterior spurring with small osteophytes from the C3-C6. Facet Joints:No significant abnormality. Prevertebral Soft Tissues:No significant abnormality. Additional findings: None. IMPRESSION: 1. No acute radiographic abnormality of the cervical spine. Mild multilevel degenerative change. Signer Name: Amira Montanez MD Signed: 02/11/2021 12:47 AM Workstation Name: [id number] Transcribed By: [facility] Dictated By: Amira Montanez MD Electronically Authenticated By: Amira Montanez MD Signed Date/Time: 02/11/2146 DD/ TD/TT: - Medical Decision Making Patient is a 60-year-old male presents emergency room complaints of neck pain. Patient states that he was walking in a store and a 5 pound item fell onto his neck. He is ambulatory without difficulty. He denies falling to the ground. He denies any other injury. He denies any loss of consciousness, vision changes, vomiting, weakness, complete numbness. Past medical history of GERD, hypertension, hyperlipidemia, prediabetes, CKD stage I. Allergy to erythrom ycin, sulfa, tetracyclines. on exam:mild bilateral c-spine paraspinal muscular ttp, no midline c-spine ttp, no step offs, no deformities, no ecchymosis, no edema, no crepitus, no focal neuro deficits. X-ray cervical spine: 1. No acute radiographic abnormality of the cervical spine. Mild multilevel degenerative change. [place] CT head rule is 0, CT head imaging is not recommended. Discussed all results with patient and answered questions. Patient can prescription for Tylenol and Robaxin. Advised patient Please take medication as prescribed as needed. May use ice pack, heating pad, rest, and epsom salt bath. Do not drive or operate machinery while taking muscle relaxer Robaxin. May use ice pack, heating pad, rest, and epsom salt bath. follow up with a primary care doctor. Return to emergency room for any new or worsening symptoms. Critical care attestation.: If time is entered above; I have spent that time in minutes in the direct care of this critically ill patient, excluding procedure time. ED Disposition Clinical Impression: Neck pain Disposition: DC-01 TO HOME OR SELFCARE Is pt being admited?: No Does the pt Need Aspirin: No Condition: Stable Additional Instructions: Please take medication as prescribed as needed. May use ice pack, heating pad, rest, and epsom salt bath. Do not drive or operate machinery while taking muscle relaxer Robaxin. May use ice pack, heating pad, rest, and epsom salt bath. follow up with a primary care doctor. Return to emergency room for any new or worsening symptoms. Prescriptions: methOCARBAMOL [Robaxin TAB] 500 mg PO BID PRN #14 tab PRN Reason: pain Acetaminophen [Tylenol] 650 mg PO Q8HR PRN #20 capsule PRN Reason: pain Referrals: PRIMARY MD AUTUMN [Primary Care Provider] - 2-3 Days DEMARCUS JOSÉ MD [Staff Physician] - 2-3 Days [facility] [Provider Group] - 2-3 Days Time of Disposition: 00:54 Print Language: GHANAIAN
--- NOTE | 2021-02-11 00:51 | XRay Report ---
CERVICAL SPINE HISTORY: Neck pain COMPARISON: None. TECHNIQUE: 3 view(s) of the cervical spine obtained. FINDINGS: Vertebrae: Normal alignment. No displaced fracture or significant abnormality. Disc Spaces:Disc spaces appear relatively preserved. There is anterior spurring with small osteophyte s from the C3-C6. Facet Joints:No significant abnormality. Prevertebral Soft Tissues:No significant abnormality. Additional findings: None. IMPRESSION: 1. No acute radiographic abnormality of the cervical spine. Mild multilevel degenerative change. Signer Name: Amira Montanez MD Signed: 02/11/2021 12:47 AM Workstation Name: [id number]
[2021-02-11] MEDS ORDERED: ACETAMINOPHEN 325 MG TAB ONE (01:53)
== END 2021-02-11 01:00 | disposition home or self-care (01) ==
LOC: ED 20:58
DX: M54.2 Cervicalgia (principal); I10 Essential (primary) hypertension; K21.9 Gastro-esophageal reflux disease without esophagitis; Z98.890 Other specified postprocedural states; Z79.1 Long term (current) use of non-steroidal anti-inflammatories (NSAID); Z79.2 Long term (current) use of antibiotics; Z79.899 Other long term (current) drug therapy; Z88.2 Allergy status to sulfonamides; Z88.8 Allergy status to other drugs, medicaments and biological substances
CPT/HCPCS: 72040